=== PATIENT | male | born 2000 | race Caucasian/White ===

== ENCOUNTER 2022-03-16 12:57 | Day surgery (SDC) | payer OTHER ==
[2022-03-10 16:07] VITALS: BMI 22.4
[2022-03-16] MEDS ORDERED: BUPIVACAINE HCL/PF 2.5 MG/ML - 30 ML VIAL IJ ONE (14:03)
[2022-03-16] MEDS ORDERED: MIDAZOLAM HCL 2 MG/2 ML SINGLE DOSE VIAL ONE (14:47)
[2022-03-16] MEDS ORDERED: PROPOFOL 40 ML ONE (14:47)
[2022-03-16] MEDS ORDERED: SUCCINYLCHOLINE CHLORIDE 200 MG/10 ML SYRINGE ONE (14:47)
[2022-03-16] MEDS ORDERED: ONDANSETRON 4 MG/2 ML VIAL ONE ×2 (15:04→16:00)
[2022-03-16] MEDS ORDERED: DEXAMETHASONE SOD PHOSPHATE 4 MG/1 ML VIAL ONE (15:04)
[2022-03-16] MEDS ORDERED: ceFAZolin SODIUM 1 GM VIAL ONE (15:04)
[2022-03-16] MEDS ORDERED: oxyCODONE HCL 5 MG TABLET PO PRN ×3 (15:10→16:31)
[2022-03-16] MEDS ORDERED: ONDANSETRON 4 MG/2 ML VIAL IVPUSH PRN ×2 (15:10→16:31)
[2022-03-16] MEDS ORDERED: PROMETHAZINE HCL 25 MG/1 ML VIAL IVPUSH PRN ×2 (15:10→16:31)
[2022-03-16] MEDS ORDERED: LACTATED RINGERS SOLUTION 1,000 ML IV SCH (15:15)
[2022-03-16] MEDS ORDERED: FENTANYL CITRATE/PF 50 MCG/ML VIAL ONE (16:50)
[2022-03-16] MEDS ORDERED: oxyCODONE HCL 5 MG TABLET ONE (17:35)
[2022-03-16 18:31] VITALS: RESP 17; TEMP 97.8
[2022-03-16 18:36] VITALS: BP 128/76; PULSE 66
== END 2022-03-16 18:25 | disposition home or self-care (01) ==
LOC: FASU 12:57
PROVIDERS: ATTEND Orthopaedic Surgery Hand Surgery
PROC: 0PUM07Z Supplement Right Carpal with Autologous Tissue Substitute, Open Approach (ICD-10-PCS; principal; 2022-03-16 15:11)
DX: S62.024A Nondisplaced fracture of middle third of navicular [scaphoid] bone of right wrist, initial encounter for closed fracture (principal); X58.XXXA Exposure to other specified factors, initial encounter; Y93.9 Activity, unspecified; Y92.9 Unspecified place or not applicable
CPT/HCPCS: 73110-TC-RT-FY; 94760; C1713